=== PATIENT | female | born 1950 | race Caucasian/White ===

== ENCOUNTER → 2016-03-11 | Outpatient (CLI) | payer BC ==
--- NOTE | 2016-03-12 09:20 | MA ---
CORRECTED ORDER Screening Digital Mammogram, With Tomosynthesis and iCAD Indication: Routine screening. Technique: Standard digital CC projections were obtained. Digital breast tomosynthesis was performed in the MLO projection, with reconstruction at 1.0- mm slice thickness. Composite MLO views were reconstructed. This examination was processed by the iCAD computer-aided detection system. Comparison: February 2015, January 2014, January 2013, and November 2010. Breast Density: Type C. Findings: CAD was reviewed. No suspicious microcalcifications, mass, or architectural distortion. Impressions 1. Negative mammogram. 2. BI-RADS: 1 - Negative. Recommendation: Routine screening is recommended in one year, as long as physical examination is benign, in this patient with moderately dense breast parenchyma. [facility] will send a result letter to the patient. Negative mammography should not preclude additional workup of a clinically suspicious finding. The patient's information is entered into a reminder system with a target due date for her next mammogram. [facility]
== END ==
LOC: FIMAGING 14:50
DX: Z12.31 Encounter for screening mammogram for malignant neoplasm of breast (principal)
CPT/HCPCS: G0202

== ENCOUNTER → 2017-06-26 | Outpatient (CLI) | payer BC | LOC: FIMAGING 14:32 | PROVIDERS: ATTEND Obstetrics & Gynecology Gynecology | DX: Z12.31 Encounter for screening mammogram for malignant neoplasm of breast (principal) ==

== ENCOUNTER → 2018-07-02 | Outpatient (CLI) | payer BC, OTHER | LOC: FIMAGING 13:51 | PROVIDERS: ATTEND Obstetrics & Gynecology Gynecology | DX: Z12.31 Encounter for screening mammogram for malignant neoplasm of breast (principal); Z80.3 Family history of malignant neoplasm of breast ==